=== PATIENT | female | born 1940 | race Caucasian/White ===

== ENCOUNTER 2024-11-05 16:46 | Emergency (ER) | payer BC, SELFPAY ==
[2024-11-05 16:51] VITALS: BP 170/87
[2024-11-05 17:09] LABS: % Basophils 0.4 % (0-2); % Eosinophils 3.1 % (0-6); % Immature Granulocytes 0.2 % (0-0.5); % Monocytes 8.1 % (1.7-9.3); % Neutrophils 57.2 % (42.2-75.2); Absolute Eosinophils 0.3 10^3/uL (0-0.7); Absolute Lymphocytes 2.5 10^3/uL (1.2-3.4); Absolute Monocytes 0.7 10^3/uL (0.1-0.6); Absolute Neutrophils 4.7 10^3/uL (1.4-6.5); Hematocrit 37.5 % (37.0-47.0); Hemoglobin 12.4 g/dL (12.0-16.0); Mean Corp Hgb Conc. 33.1 g/dL (33.0-37.0); Mean Corpuscular Hgb 30.7 pg (27.0-31.0); Mean Corpuscular Volume 92.8 fL (81.0-99.0); Mean Platelet Volume 8.3 fL (7.4-10.4); Nucleated Red Blood Cells % 0 %; Platelet Count 224 10^3/uL (130-400); Red Blood Cell Count 4.04 10^6/uL (4.20-5.40); Red Cell Dist. Width 13.5 % (11.5-14.5); White Blood Cell Count 8.2 10^3/uL (4.8-10.8)
[2024-11-05 17:33] LABS: ALT (SGPT) 15 U/L (0-35); AST (SGOT) 21 U/L (14-36); Albumin 4.3 g/dl (3.5-5.0); Alkaline Phosphatase 34 U/L (38-126); Blood Urea Nitrogen 16 mg/dl (7-17); Calcium 9.4 mg/dl (8.4-10.2); Carbon Dioxide 30 mmol/L (22-30); Chloride 106 mmol/L (98-107); Glucose 87 mg/dl (70-99); Lipase 25 U/L (23-300); Potassium 4.3 mmol/L (3.5-5.1); Sodium 141 mmol/L (135-145); Total Bilirubin 0.8 mg/dl (0.2-1.3); Total Protein 7.3 g/dl (6.3-8.2); eGFR > 60.00
[2024-11-05 19:40] VITALS: BP 161/100
[2024-11-05 20:19] VITALS: BMI 36.6
[2024-11-05 20:28] VITALS: BP 155/83
[2024-11-06] VITALS: BP 148/80
--- NOTE | 2024-11-06 00:42 | ED.GENMED ---
History of Present Illness
General
Chief Complaint: Abdominal Symptoms
Source: patient
Exam Limitations: none
Time Seen by Provider: 11/05/24 19:55
Nursing documentation reviewed up to this point in time: agreed with
History of Present Illness
History of Present Illness:
Patient to ED with complaint of right sided abdominal pain. Pain started 2 days ago. Denies fever/chills, n/v/d. No prior history of same. Brought to ED by spouse for eval.
Past History
Past History
ED Past Medical History: Arrthythmia, HTN, Hypercholesterolemia and Valvular disease
ED Past Surgical History: Cholecystectomy and Gynecological
Social History
Tobacco: Non-smoker
Personal:
Living: with family
Review of Systems
Review of Systems
Allergies reviewed?: Yes
All Other Systems: ROS reviewed and negative except as documented in HPI and ROS
Constitutional: Reports no symptoms
EENT: Reports no symptoms
Respiratory: Reports no symptoms
Cardiac: Reports no symptoms
ABD/GI: Reports abdominal pain (right abd. pain)
: Reports no symptoms
Musculoskeletal: Reports no symptoms
Skin: Reports no symptoms
Neurological: Reports no symptoms
Psychiatric: Reports no symptoms
Phy Exam
General Physical Exam
General Presentation: mild distress
General age: appears stated age
General Skin: warm and dry
General Habitus: normal
General Mental: alert
Cardiovascular Exam
Cardiovascular Exam: regular rate/rhythm
Pulmonary Exam
Pulmonary Exam: lungs clear and no respiratory distress
Gastrointestinal Exam
Gastrointestinal Exam: normal bowel sounds, soft, no organomegaly, no pulsatile mass, non distended and no cva tenderness
Palpation: left upper quadrant: No tenderness, left lower quadrant: No tenderness, right upper quadrant: Moderate tenderness and right lower quadrant: Moderate tenderness
Musculoskeletal Exam
Musculoskeletal Exam: full ROM and neuro vasc intact
Skin Exam
Skin Exam: normal color, warm/dry and no rash
Psychiatric Exam
Psychiatric Exam: normal mood/affect
Course
Orders/Labs/Results
Orders:
Orders
11/05/24 17:01
Complete Blood Count/With Diff Urgent
Comprehensive Metabolic Panel Urgent
Lipase Urgent
11/05/24 20:17
US Abdomen Complete/Upper Urgent
Comment:
Reason For Exam: right abd pain
11/05/24 21:48
CT Abd/pelvis W Iv Cont Urgent
Comment:
Reason For Exam: right abd. pain
Abnormal Lab Results
11/05/24
17:01
RBC 4.04 L 10^6/uL
(4.20-5.40)
Absolute Monos (auto) 0.7 H 10^3/uL
(0.1-0.6)
Alkaline Phosphatase 34 L U/L
(38-126)
11/05/24 17:01
11/05/24 17:01
Vital Signs
Initial and Last Documented VS:
Initial Vital Signs
Temp Pulse Resp BP Pulse Ox
98.5 F 75 16 170/87 94
11/05/24 16:51 11/05/24 16:51 11/05/24 16:51 11/05/24 16:51 11/05/24 16:51
Last Documented Vital Signs
Temp Pulse Resp BP Pulse Ox
98.1 F 68 18 155/83 95
11/05/24 20:29 11/05/24 20:29 11/05/24 20:29 11/05/24 20:28 11/05/24 22:45
*Radiology
Radiology exam reviewed: radiology read reviewed
*Pulse Oximetry
Patient hypoxic: no
*Critical Care Note
Total Time (30-74mins, 75-104mins- exclusive of procedures): Not Applicable
ED Attending Note
-
Portions of this chart may have been created with voice recognition software.� Occasional wrong word or��sound alike� substitutions may have occurred due to the inherent limitations of voice recognition software.
Discharge Plan
Departure
Patient Disposition: Home (Routine Discharge)
Date of Disposition: 11/06/24
Time of Disposition: 00:24
Patient with high blood pressure during this ER visit?: No
Condition: Good
Covid-19: Not Applicable
Discharge Problem:
Abdominal pain
Instructions: Abdominal Pain
Prescriptions:
No Action
simvastatin 40 MG tablet
40 mg PO QPM
coenzyme Q10 100 MG capsule
100 mg PO DAILY
calcium carbonate-vitamin D3 [Calcium 600 + D(3)] 1 EACH tablet
1 ea PO DAILY
Eliquis 5 MG tablet
5 mg PO BID
metoprolol succinate 50 MG tablet extended release 24 hr
50 mg PO DAILY
lisinopril [Prinivil] 5 MG tablet
5 mg PO DAILY
cholecalciferol (vitamin D3) [Vitamin D3] 2,000 UNIT capsule
2,000 unit PO DAILY
L.acidoph,paracasei,B.animalis 1 EACH capsule
1 ea PO DAILY
docosahexaenoic acid-epa 1 CAP capsule
1 cap PO DAILY
Patient Comments:
Pt reports taking omega-7, 210 mg spoke to Elva in pharmacy and ok to put in med rec as fish oil
multivitamin 1 EACH tablet
1 ea PO DAILY
furosemide 40 MG tablet
40 mg PO DAILY
magnesium 200 mg Tablet
400 mg PO DAILY
Referrals:
Marisol Pereira MD [Family Provider, Family Practice] - Tomorrow
Activity Restrictions/Additional Instructions:
return to the emergency department immediately for any changes in/worsening of your symptoms.
Interventions
Interventions:
*Risk Screen - Suicide Last Done: 11/05/24 16:51
*General Assessment Last Done: 11/05/24 16:51
*Neglect/Abuse Screening Last Done: 11/05/24 20:20
*ED- Fall Risk Assessment Last Done: 11/05/24 20:20
*ED COVID-19 Vaccine History Last Done: 11/05/24 20:20
[facility] Assessment Last Done: 11/05/24 20:20
Discharge Date and Time
Print Language: DOMINICAN
== END 2024-11-06 00:35 | disposition home or self-care (01) ==
LOC: EMR 16:46
PROVIDERS: Emergency Medicine; EMERGENCY PHYSICIAN Student in an Organized Health Care Education/Training Program; FAMILY PHYSICIAN Family Medicine
DX: R10.9 Unspecified abdominal pain (principal); E78.00 Pure hypercholesterolemia, unspecified; I10 Essential (primary) hypertension; Z90.49 Acquired absence of other specified parts of digestive tract
CPT/HCPCS: 99284; 74177; 76700; 80053; 83690; 85025; Q9967

== ENCOUNTER → 2024-12-30 10:01 | Outpatient (REF) | payer BC, SELFPAY | LOC: HWRCS 10:01 | PROVIDERS: ATTENDING PHYSICIAN Nurse Practitioner; FAMILY PHYSICIAN Family Medicine | DX: I05.0 Rheumatic mitral stenosis (principal) | CPT/HCPCS: 93306 ==

== ENCOUNTER 2025-05-22 15:22 | Emergency (ER) | payer BC, SELFPAY ==
[2025-05-22 15:26] VITALS: BP 167/80
[2025-05-22 16:58] VITALS: BP 175/77; BMI 37.5
--- NOTE | 2025-05-22 17:04 | ED.GENMED ---
History of Present Illness
General
Chief Complaint: Musculo-Skeletal Complaint
Time Seen by Provider: 05/22/25 17:04
History of Present Illness
History of Present Illness:
FOCUSED PAST MEDICAL HISTORY
- Had subdural hematoma in 2004, A-fib on Eliquis
REVIEW OF OLD RECORDS
- Patient was seen here with abdominal pain in the ER November 2024
- She also seen in the ER related to hematuria in 2019
Note:
CHIEF COMPLAINT(S)
Severe knee pain.
HISTORY OF PRESENT ILLNESS
The patient is an 85-year-old female with a past medical history significant for atrial fibrillation currently managed with anticoagulation therapy (Apixaban, brand name Eliquis), presenting with severe knee pain that began yesterday. The pain was
described as spontaneous without any preceding injury. The patient reports using her husbands walker due to an inability to walk unaided.
On examination, there is no evidence of fracture, dislocation, or a severe degenerative joint disease based on the x-ray reports. Minimal degenerative changes were noted, suggestive of mild arthritis. The patient is not in acute distress and does
not exhibit any warmth or erythema suggestive of infection in the affected area. The pain is markedly exacerbated by knee flexion and extension activities.
Given the anticoagulation therapy, there is a possibility of intra-articular bleeding, although this was not definitively confirmed through imaging. The recommendation was to potentially hold the Eliquis for a day or two to evaluate if this reduces
symptoms, with the caveat of consulting with her crop duster.
PAST MEDICAL AND SURGICAL HISTORY
- Atrial fibrillation, managed with rate control.
- Previous shoulder fracture, managed by orthopedics.
CHRONIC MEDICAL CONDITIONS SIGNIFICANTLY AFFECTING CARE
- Permanent atrial fibrillation.
PHYSICAL EXAM
General: The patient appears comfortable at rest.
Skin: No erythema or warmth noted over the joint to suggest infection.
Musculoskeletal: Markedly decreased active range of motion, especially into flexion, without signs of acute swelling (edema present in bilateral lower extremities).
PROBLEM LIST
Acute:
- Severe knee pain likely secondary to arthritis exacerbated by anticoagulation.
Chronic:
- Atrial fibrillation.
PLAN
1. Hold Eliquis for one to two doses after discussing with her crop duster to assess improvement in symptoms.
2. Prescription provided for Percocet for pain control, with caution regarding its sedative effects.
3. Apply knee immobilizer as tolerated, with advice to intermittently remove it for knee range of motion exercises.
4. Referral information provided for follow-up with an digital strategy specialist at [facility] or [facility].
5. Immediate administration of a dose of Percocet in the hospital setting.
DIFFERENTIAL DIAGNOSIS
The Differential Diagnosis includes, in no particular order and is not limited to:
1. Osteoarthritis exacerbation
2. Hemarthrosis
3. Gout
4. Pseudogout
5. Septic arthritis
6. Ligamentous injury
7. Meniscal tear
8. Deep vein thrombosis
9. Cellulitis
10. Rheumatoid arthritis flare
Disposition:
SUMMARY OF ENCOUNTER
The patient, an 85-year-old female with a history of atrial fibrillation on anticoagulation therapy, presented to the emergency department with severe left knee pain. The pain started spontaneously without any preceding injury. Upon examination and
review of x-ray reports, there was no evidence of fracture or dislocation, though mild arthritis was noted. Considering the patients anticoagulation therapy, the possibility of intra-articular bleeding was considered. A decision was made to
potentially hold apixaban (Eliquis) as a precautionary measure to assess improvement in symptoms.
ASSESSMENT
Severe left knee pain likely secondary to arthritis exacerbated by anticoagulation.
PLAN
1. Hold apixaban (Eliquis) for one to two doses after discussion with her crop duster.
2. Patient advised to follow up with an digital strategy specialist.
3. Apply knee immobilizer as tolerated.
INDEPENDENT REVIEW OF LABS AND INTERPRETATION OF TESTS
My independent interpretation of the knee x-ray suggests no fracture or dislocation, with minimal degenerative changes indicative of mild arthritis.
PATIENT EDUCATION AND COUNSELING
Patient was informed about the need to hold her anticoagulation medication temporarily and was advised to follow up with an digital strategy specialist for further evaluation of her knee pain.
FOLLOW-UP INSTRUCTIONS
The patient was advised to schedule a follow-up appointment with an digital strategy specialist promptly.
MEDICATION RECONCILIATION
1. Apixaban (Eliquis) to be held for one to two doses with cardiology consultation advised.
2. Knee immobilizer provided for support.
MEDICAL DECISION MAKING
- Complexity of Data Reviewed: Chronic conditions affecting care include atrial fibrillation. Differential diagnosis includes osteoarthritis exacerbation, hemarthrosis, gout, pseudogout, septic arthritis, ligamentous injury, meniscal tear, deep vein
thrombosis, cellulitis, rheumatoid arthritis flare.
- Data:
Category 1: X-ray of the knee reviewed indicating no fracture or dislocation.
Category 2: Not applicable.
Category 3: Discussion with crop duster recommended for anticoagulation management.
- Risk: Prescription medication management, specifically holding anticoagulation therapy, was discussed due to potential complications of intra-articular bleeding.
DIAGNOSIS
1. Primary Osteoarthritis of Knee, Left [M17.12].
RADIOLOGY
- X-ray shows no fracture of the left knee, some degenerative changes noted which are minimal
Past History
Past History
ED Past Medical History: Arrthythmia, HTN, Hypercholesterolemia and Valvular disease
ED Past Surgical History: Cholecystectomy and Gynecological
Social History
Tobacco: Non-smoker
Personal:
Living: with family
Phy Exam
Physical Exam
Physical Exam:
See HPI
Course
Orders/Labs/Results
Orders:
Orders
05/22/25 15:28
Knee, Left 4 or More Views [CR Knee - Left 4 Or More View*] Urgent
Comment:
Reason For Exam: pain
05/22/25 17:14
Knee Immobilizer Left-Treatmen ONCE
05/22/25 17:15
Oxycodone/Acetaminophen [Percocet 5/325] 1 tablet PO NOW STA
Vital Signs
Initial and Last Documented VS:
Initial Vital Signs
Temp Pulse Resp BP Pulse Ox
36.5 C 66 16 167/80 96
05/22/25 15:26 05/22/25 15:26 05/22/25 15:26 05/22/25 15:26 05/22/25 15:26
Last Documented Vital Signs
Temp Pulse Resp BP Pulse Ox
36.5 C 76 18 175/77 95
05/22/25 15:26 05/22/25 16:58 05/22/25 16:58 05/22/25 16:58 05/22/25 17:05
*Pulse Oximetry
SaO2: 95
Oxygen Mode of Delivery: Room air
Patient hypoxic: no
*Critical Care Note
Total Time (30-74mins, 75-104mins- exclusive of procedures): Not Applicable
ED Attending Note
-
Portions of this chart may have been created with voice recognition software.� Occasional wrong word or��sound alike� substitutions may have occurred due to the inherent limitations of voice recognition software.
Discharge Plan
Departure
Patient Disposition: Home (Routine Discharge)
Date of Disposition: 05/22/25
Time of Disposition: 17:15
Patient with high blood pressure during this ER visit?: Yes
Discharge Problem:
Acute pain of left knee
Instructions: BLOOD PRESSURE
Prescriptions:
New
oxycodone-acetaminophen [Percocet] 5-325 mg tablet
1 tab PO Q8H PRN (Reason: Pain) Qty: 14 0RF
No Action
simvastatin 40 MG tablet
40 mg PO QPM
coenzyme Q10 100 MG capsule
100 mg PO DAILY
calcium carbonate-vitamin D3 [Calcium 600 + D(3)] 1 EACH tablet
1 ea PO DAILY
Eliquis 5 MG tablet
5 mg PO BID
metoprolol succinate 50 MG tablet extended release 24 hr
50 mg PO DAILY
lisinopril [Prinivil] 5 MG tablet
5 mg PO DAILY
cholecalciferol (vitamin D3) [Vitamin D3] 2,000 UNIT capsule
2,000 unit PO DAILY
katty Peterson B.animalis 1 EACH capsule
1 ea PO DAILY
docosahexaenoic acid-epa 1 CAP capsule
1 cap PO DAILY
Patient Comments:
Pt reports taking omega-7, 210 mg spoke to Elva in pharmacy and ok to put in med rec as fish oil
multivitamin 1 EACH tablet
1 ea PO DAILY
furosemide 40 MG tablet
40 mg PO DAILY
magnesium 200 mg Tablet
400 mg PO DAILY
Activity Restrictions/Additional Instructions:
Since you are on Eliquis, it is possible you could have some bleeding into the joint. You could hold the Eliquis for tonight and tomorrow morning's dose then resume. I also recommend that you follow-up with orthopedics such as either Dr. Fuchs
([facility] orth[facility]) or Dr. Chowdhury ([facility] orthoped[facility]). I am sending a prescription for Percocet to your pharmacy. If you take Percocet, take something like MiraLAX to help with constipation.
Interventions
Interventions:
*Neglect/Abuse Screening Last Done: 05/22/25 16:58
*ED COVID-19 Vaccine History Last Done: 05/22/25 16:58
*ED Influenza Vaccine History Last Done: 05/22/25 16:58
[facility] Risk Assessment Tool Last Done: 05/22/25 16:58
*Risk Screen - Suicide (C-SSRS) Last Done: 05/22/25 15:26
*Nursing Disposition Last Done: 05/22/25 18:46
ED-Musculoskeletal Assessment Last Done: 05/22/25 16:58
Discharge Date and Time
Discharge Date/Time: 05/22/25 18:15
Print Language: HEBREW
[2025-05-22] MEDS: PERCOCET 5/325 1 TABLET PO (17:57)
== END 2025-05-22 18:15 | disposition home or self-care (01) ==
LOC: EMR 15:22
PROVIDERS: EMERGENCY PHYSICIAN Emergency Medicine; FAMILY PHYSICIAN Family Medicine
DX: M25.562 Pain in left knee (principal); M17.12 Unilateral primary osteoarthritis, left knee; I10 Essential (primary) hypertension; I48.21 Permanent atrial fibrillation; E78.00 Pure hypercholesterolemia, unspecified; Z79.01 Long term (current) use of anticoagulants
CPT/HCPCS: 99283; 29505; 73564